=== PATIENT | male | born 1955 | race Caucasian/White ===

== ENCOUNTER → 2020-02-18 | Outpatient (CLI) | payer OTHER ==
[~2020-02-18] MED LIST: ALTACE10 MG PO; DICLOFENAC SODI75 MG PO; LIPITOR 20 MG T20 M1 PO; METFORMIN HCL500 MG PO; NORCO 5-325 TA1 EACH PO; NORVASC10 MG PO; PREDNISONE 20 M20 M1 PO; VENTOLIN HFA 1818 GM INH; ZPAK PO
== END ==
LOC: M.LAB 07:49
PROVIDERS: ATTEND Orthopaedic Surgery
DX: U07.1 COVID-19 (principal)

== ENCOUNTER → 2020-03-31 | Outpatient (CLI) | payer OTHER | LOC: M.LAB 08:41 | PROVIDERS: ATTEND Orthopaedic Surgery | DX: Z01.812 Encounter for preprocedural laboratory examination (principal); Z20.822 Contact with and (suspected) exposure to COVID-19 ==

== ENCOUNTER → 2020-12-26 | Outpatient (CLI) | payer OTHER | LOC: M.LAB 09:13 | PROVIDERS: ATTEND Orthopaedic Surgery | DX: Z01.812 Encounter for preprocedural laboratory examination (principal); Z20.822 Contact with and (suspected) exposure to COVID-19 ==